=== PATIENT | male | born 1985 | race Caucasian/White ===

== ENCOUNTER 2022-12-07 20:53 | Emergency (ER) | payer OTHER ==
[~2022-12-07] VITALS: Ht 180.3 cm; Wt 75.9 kg
[2022-12-07 21:00] VITALS: BP 130/90; PULSE 80; RESP 17; TEMP 97.8; O2SAT 98
[2022-12-07 21:31] VITALS: O2SAT 98
[2022-12-07 21:34] LABS: APPEARANCE,URINE CLEAR (CLEAR); BILIRUBIN,URINE NEGATIVE (NEGATIVE); BLOOD, URINE NEGATIVE (NEGATIVE); COLOR,URINE YELLOW (YELLOW); LEUKOCYTE ESTERASE ,URINE NEGATIVE (NEGATIVE); NITRITE, URINE NEGATIVE (NEGATIVE); PROTEIN,URINE NEGATIVE (NEGATIVE); UGLUCOSE NEGATIVE (NEGATIVE)
[2022-12-08] MEDS ORDERED: metroNIDAZOLE 500 MG TAB PO ONE (00:15)
== END 2022-12-08 00:58 | disposition home or self-care (01) ==
LOC: MED 20:53
DX: A59.09 Other urogenital trichomoniasis (principal); Z79.899 Other long term (current) drug therapy
CPT/HCPCS: 81003; 87086; 87491; 99283